=== PATIENT | female | born 1945 | race Caucasian/White ===

== ENCOUNTER → 2020-05-01 | Outpatient (CLI) | payer MEDICARE ==
[2020-05-01 13:16] LABS: BUN/CREATININE RATIO 18 (0-10)
[2020-05-02 08:13] LABS: VITAMIN D, 25-HYDROXY 63.9 ng/mL (30.0-100.0)
[2020-05-02 11:13] LABS: RHEUMATOID ARTHRITIS FACTOR <10.0 IU/mL (0.0-13.9)
[2020-05-02 15:13] LABS: ANGIOTENSIN-CONVERTING ENZYME 37 U/L (14-82)
[2020-05-03 01:09] LABS: CCP ANTIBODIES IGG/IGA 3 units (0-19)
== END ==
LOC: RAD 12:08
PROVIDERS: Internal Medicine
DX: D89.89 Other specified disorders involving the immune mechanism, not elsewhere classified (principal); M25.50 Pain in unspecified joint; L92.0 Granuloma annulare; M81.0 Age-related osteoporosis without current pathological fracture; Z87.09 Personal history of other diseases of the respiratory system; S22.008A Other fracture of unspecified thoracic vertebra, initial encounter for closed fracture; X58.XXXA Exposure to other specified factors, initial encounter
CPT/HCPCS: 36415; 71046; 80069; 82164; 83520; 86200; 86431